=== PATIENT | male | born 2000 | race Two or more races ===

== ENCOUNTER 2022-02-07 15:14 | Emergency (ER) | payer OTHER ==
[~2022-02-07] VITALS: Ht 175.3 cm; Wt 83.9 kg
[2022-02-07 15:25] VITALS: BP 138/84
[2022-02-07] MEDS ORDERED: ACETAMINOPHEN ES 500 MG TABLET ONE (15:45)
[2022-02-07] MEDS ORDERED: IBUPROFEN 600 MG TABLET ONE (15:45)
[2022-02-07] MEDS ORDERED: TDAP [DIPH/PERTUSSIS/TET] 0.5 ML VIAL IM ONE ×2 (15:45→16:00)
[2022-02-07] MEDS ORDERED: IBUPROFEN 600 MG TABLET PO ONE (16:00)
[2022-02-07] MEDS ORDERED: ACETAMINOPHEN ES 500 MG TABLET PO ONE (16:00)
== END 2022-02-07 15:56 ==
LOC: ER 15:20
DX: S00.83XA Contusion of other part of head, initial encounter (principal); S00.33XA Contusion of nose, initial encounter; S00.12XA Contusion of left eyelid and periocular area, initial encounter; W18.30XA Fall on same level, unspecified, initial encounter; Y93.89 Activity, other specified; Y92.89 Other specified places as the place of occurrence of the external cause; Y99.8 Other external cause status
CPT/HCPCS: 90715